=== PATIENT | female | born 1970 | race American Indian/Alaskan Native ===

== ENCOUNTER 2018-07-26 19:21 | Emergency (ER) | payer BC ==
[2018-07-26 19:21] VITALS: BMI 32.3
[2018-07-26 20:22] VITALS: BP 130/81; PULSE 78; RESP 18; TEMP 98.3; O2SAT 98
[2018-07-26] MEDS ORDERED: Naproxen 550 mg Tab PO STA (20:45)
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
--- NOTE | 2018-07-27 09:46 | RAD ---
PROCEDURE: Left Knee Radiographs, two views. HISTORY: pain COMPARISON: None available. FINDINGS: Rotated lateral view. BONES: No acute displaced fracture. JOINTS: No dislocation. Joint space narrowing greatest the lateral compartment. JOINT EFFUSION: Small suprapatellar joint effusion. OTHER FINDINGS: None. IMPRESSION: Limited study. Degenerative changes. Small suprapatellar joint effusion.
== END 2018-07-26 22:30 | disposition home or self-care (01) ==
LOC: ED 19:21
DX: S80.02XA Contusion of left knee, initial encounter (principal); V09.9XXA Pedestrian injured in unspecified transport accident, initial encounter; Y92.89 Other specified places as the place of occurrence of the external cause